=== PATIENT | male | born 2000 | race Caucasian/White ===

== ENCOUNTER 2022-07-01 07:47 | Emergency (ER) | payer SELFPAY ==
[~2022-07-01] VITALS: Ht 180.3 cm; Wt 60.2 kg
[2022-07-01] MEDS ORDERED: KETOROLAC 30 MG/ML 1ML VIAL IV ONE (08:45)
[2022-07-01] MEDS ORDERED: ONDANSETRON 4MG 2ML VIAL IV ONE (08:45)
[2022-07-01] MEDS ORDERED: NS 1,000 ML IV ONE (08:45)
[2022-07-01] MEDS ORDERED: MORPHINE 4 MG/ML 1ML VIAL IV ONE (09:05)
[2022-07-01 09:25] LABS: BASO # 0.1 10^3/uL (0.0-0.2); BASO % 0.4 % (0.0-1.0); EOS # 0.2 10^3/uL (0.0-0.5); HEMOGLOBIN 15.7 g/dl (13.5-17.5); LYMPH # 4.5 10^3/uL (1.5-5.0); MEAN CORPUSCULAR HEMOGLOBIN 29.2 pg (27.0-33.0); MEAN CORPUSCULAR HGB CONC 34.1 g/dl (32.0-36.5); MEAN CORPUSCULAR VOLUME 85.7 fl (80.0-96.0); MONO # 1.4 10^3/uL (0.0-0.8); MONO % 7.6 % (2.0-8.0); NEUTROPHILS # 12.4 10^3/uL (1.5-8.5); NEUTROPHILS % 66.6 % (36.0-66.0); PLATELET COUNT, AUTOMATED 347 10^3/uL (150-450); RED BLOOD COUNT 5.37 10^6/uL (4.30-6.10); WHITE BLOOD COUNT 18.7 10^3/uL (4.0-10.0)
[2022-07-01 09:42] LABS: ALBUMIN 4.3 G/DL (3.2-5.2); ALKALINE PHOSPHATASE 74 U/L (46-116); ALT/SGPT 20 U/L (7.0-40); AST/SGOT 24 U/L (<34); BILIRUBIN,DIRECT 0.1 MG/DL (<0.4); BILIRUBIN,TOTAL 0.4 MG/DL (0.3-1.2); BLOOD UREA NITROGEN 14 MG/DL (9-23); CALCIUM LEVEL 9.9 MG/DL (8.5-10.1); CARBON DIOXIDE LEVEL 20 MMOL/L (20-31); CHLORIDE LEVEL 103 MMOL/L (98-107); CREATININE FOR GFR 0.73 MG/DL (0.70-1.30); GLOMERULAR FILTRATION RATE > 60.0 (>60); GLUCOSE, FASTING 153 MG/DL (60-100); POTASSIUM SERUM 4.1 MMOL/L (3.5-5.1); SODIUM LEVEL 139 MMOL/L (136-145); TOTAL PROTEIN 7.4 G/DL (5.7-8.2)
[2022-07-01 11:45] LABS: APPEARANCE, URINE MANUAL CLOUDY (CLEAR); BILIRUBIN, URINE MANUAL NEGATIVE (NEGATIVE); BLOOD URINE MANUAL POSITIVE (NEGATIVE); COLOR, URINE MANUAL YELLOW (YELLOW); GLUCOSE, URINE (UA) MANUAL NEGATIVE (NEGATIVE); KETONE, URINE MANUAL 2+ mg/dL (NEGATIVE); LEUKOCYTE ESTERASE, URINE MAN NEGATIVE (NEGATIVE); NITRITE, URINE MANUAL NEGATIVE (NEGATIVE); PH,URINE MAN 8.5 UNITS (5.0 - 7.0); PROTEIN, URINE MANUAL NEGATIVE (NEGATIVE); UROBILINOGEN, URINE MANUAL NORMAL (NORMAL)
[2022-07-01 12:04] LABS: RBC, URINE TNTC /hpf (0-3); SQUAMOUS EPITHELIAL CELL URINE SMALL AMOUNT /hpf (SMALL AMT); WBC, URINE 0-1 /hpf (0-3)
[2022-07-01 12:05] LABS: AMORPHOUS SEDIMENT, URINE SMALL AMOUNT (NEGATIVE); BACTERIA, URINE SMALL AMOUNT; HYALINE CAST, URINE NONE SEEN /lpf (0-1); MUCUS, URINE SMALL AMOUNT (NEGATIVE)
[2022-07-01] MEDS ORDERED: IBUP-1022 PO (12:06)
[2022-07-01] MEDS ORDERED: FLOM0.4C39 PO (12:06)
[2022-07-01] MEDS ORDERED: ONDA4TAB6 PO (12:06)
[2022-07-01] MEDS ORDERED: HYDR-3713 PO (12:06)
[2022-07-01 12:49] VITALS: BP 114/57
== END 2022-07-01 12:45 | disposition home or self-care (01) ==
LOC: M ED 07:47
DX: N13.2 Hydronephrosis with renal and ureteral calculous obstruction (principal); D72.829 Elevated white blood cell count, unspecified
CPT/HCPCS: 36415; 74176; 80048; 80076; 81000; 85025; 96374; 96375; 99284; J1885; J2270; J2405

== ENCOUNTER 2022-07-01 22:30 | Emergency (ER) | payer SELFPAY ==
[~2022-07-01] VITALS: Ht 180.3 cm; Wt 52.3 kg
[~2022-07-01 22:30] MED LIST: FLOM0.4C39 PO; HYDR-3713 PO; IBUP-1022 PO; ONDA4TAB6 PO
[2022-07-02 01:58] VITALS: BP 115/61
== END 2022-07-02 03:37 | disposition left against medical advice (07) ==
LOC: M ED 22:30
DX: Z53.21 Procedure and treatment not carried out due to patient leaving prior to being seen by health care provider (principal)